=== PATIENT | male | born 1960 | race Caucasian/White ===

== ENCOUNTER 2025-05-24 19:30 | Inpatient (IN) ==
[2025-05-24 20:04] LABS: Hematocrit (blood only) 27.5 % (42.0-52.0); Hemoglobin 8.6 g/dL (14.0-18.0); Immature Granulocytes # (auto) 0.22 K/uL (0.01-0.20); Immature Granulocytes % (auto) 1.4 %; Mean Corpuscular Hemoglobin 26.3 pg (25.0-34.0); Mean Corpuscular Volume 84.1 fL (80.0-100.0); Platelet Count 476 K/uL (130-400); RDW Standard Deviation 50.8 fL (36.4-46.3); Red Blood Count 3.27 M/uL (4.70-6.10); White Blood Count 15.85 K/ul (4.8-10.8)
--- NOTE | 2025-05-24 20:04 | Emergency Department Note ---
Impression & Plan Post-operative infection, Intra-abdominal abscess ED Provider Note NAME: MT ORTIZ AGE: 64 SEX: M ARRIVES VIA: Ambulance INFORMANT: [Patient][, ] ED PROVIDER(S): Herb Spencer MD CHIEF COMPLAINT: Abnormal CT scan PLAN: Disposition: Hospitalize MEDICAL DECISION MAKING: Patient CT scan shows complications from his previous surgery, possible gas, concern primarily more for infection rather than acute bleeding. Will check septic workup, hemoglobin and reassess. May need transfer for tertiary care and continuity of care. Patient with relatively recently complex medical history with a perforated diverticulitis that had postoperative bleeding requiring coiling all done at [facility]. He had previously been at [facility] and then was [facility] at to [place]. Had a somewhat complicated postoperative course with bleeding. Over the last week he has had increased nausea and decreased appetite and some low-grade fevers. He was sent for CT scan today that showed a large hematoma, approximately 14 x 12 cm with some gas attenuation in and outside of it. No recent interventions. Concern for an infected hematoma, I discussed the case with Dr. Song, he recommends admission to the hospitalist service and likely IR consultation in the morning for possible drainage. IV Zosyn has been initiated. Patient hemodynamically stable. Is due for dialysis tomorrow. Family not interested in transfer to [place], they state if he does require tertiary care center or transfer [facility] will be their likely preferred destination. They live in the [place] area Patient does have some concern for sepsis but hemodynamics are okay and we will get a 30 cc/kg bolus will cause more harm than good based on his end-stage renal disease status and concern for possible fluid overload. He has been given a liter of fluid and his blood pressure is currently 120 or 67 and he appears well-perfused with good capillary refill and normal mental status. Triage Nursing notes reviewed and agree them. [Additional history obtained from] [] [Prior medical records reviewed] [] Vital Signs: reviewed and remarkable for [no significant abnormalities] Differential diagnosis: Intra-abdominal infection, bleeding, postoperative abscess, with complications ER treatment provided: IV fluids, IV antibiotics Diagnostics interpreted by me: ECG: Sinus rhythm with a rate of 109, no acute ST segment changes or abnormalities Cardiac Monitoring: Initially sinus tachycardia, transition into normal sinus rhythm with IV fluids and antibiotics. Laboratory studies: [See below] [] Imaging studies: [See below] [] Consultation(s): [none] HPI: 64/M arrives for evaluation ofAbnormal CAT scan. Patient states he recently had perforated diverticulitis and had surgery at [facility] in [place]. He had a colostomy placed and an ex lap. He states that over the last few days he has not had much appetite and not been eating. He has not had any vomiting but feels nauseous. He has had output from his ostomy. He went for a CAT scan today and was shown to have a retroperitoneal hematoma near the surgical site with gas and an outside the hematoma. Concerning for infection versus recent instrumentation. His surgery was the beginning of April and he has not had any recent instrumentation. Reportedly did have a low-grade temperature prehospital. Patient without significant abdominal pain. ROS: See above HPI for pertinent positives & negatives. A total of [10] systems reviewed and were otherwise negative. PAST MEDICAL HISTORY:[See Below] PAST SURGICAL HISTORY:[See Below] FAMILY HISTORY:[See Below] SOCIAL HISTORY:[See Below] HOME MEDICATIONS:[See Below] ALLERGIES:[See Below] VITALS:[See Below] PHYSICAL EXAMINATION: Gen: No acute distress, Chronically ill. But not toxic Eyes: PERRL, no redness or injection, EOMI Neck: Supple, normal ROM CV: S1, S2, No murmurs, no lower extremity edema Pulm: CTA bilaterally, no increased work of breathing, no wheezing GI: Abd soft, nontender, normal bowel sounds, no distension. Ex lap scar in place, nontender, well-healing, colostomy in place with output, no obvious gross infection on the skin. Nontender abdomen. : No CVA tenderness, no suprapubic abdominal tenderness or distension Neuro: No acute focal neuro deficits, normal strength and sensation Skin: No rashes, wounds, or erythema. ED COURSE: Times/Reassessments:Patient met on arrival, some borderline blood pressure and mild tachycardia prehospital but improved without significant intervention. Patient does not appear particularly anemic to suggest an active bleed. He is a dialysis patient. 9:08 PM: Patient's CAT scan concerning for possible postoperative infection, unclear if this is acute or chronic in nature. Does have a white blood cell count and had borderline temperature. 9:50 PM: Discussed the case with general surgery, recommends admission to the hospital service, likely IR consultation tomorrow. Does not feel the patient will require transfer to tertiary care center at this time. Does not feel it would require acute surgical interventions. Herb Spencer MD Past Med/Surg History Problem List (Updated 05/24/25 @ 22:12 by Herb Spencer MD) Intra-abdominal abscess (Acute) Post-operative infection (Acute) Social History Smoking Status: Former smoker Feels Safe at Home: Yes Allergies Allergies Allergy/AdvReac Type Severity Reaction Status Date / Time No Known Allergies Allergy Verified 05/24/25 20:55 Home Meds Home Medications Medication Instructions Recorded Confirmed acetaminophen 500 mg tablet 500 mg PO Q4H PRN PAIN/TEMP=>100F 05/24/25 05/24/25 (Tylenol Extra Strength) apixaban 5 mg tablet (Eliquis) 5 mg PO BID 05/24/25 05/24/25 aspirin 81 mg tablet,delayed 81 mg PO HS 05/24/25 05/24/25 release atorvastatin 40 mg tablet 80 mg PO HS 05/24/25 05/24/25 bisacodyl 10 mg rectal suppository 10 mg MD DAILY PRN Constipation 05/24/25 05/24/25 bumetanide 2 mg tablet 2 mg PO 4XWK 05/24/25 05/24/25 calcium 333 mg (as 3 tab PO BID 05/24/25 05/24/25 carbonate)-magnesium 167 mg (as oxide) tablet darbepoetin jessi in polysorbat 100 200 mcg subcut WK 05/24/25 05/24/25 mcg/0.5 mL in polysorbate injection syringe docusate sodium 100 mg capsule 100 mg PO BID PRN Constipation 05/24/25 05/24/25 febuxostat 40 mg tablet 80 mg PO DAILY 05/24/25 05/24/25 melatonin 3 mg tablet 6 mg PO HS PRN Insomnia 05/24/25 05/24/25 methocarbamol 500 mg tablet 1,000 mg PO Q8H PRN MUSCLE SPASMS 05/24/25 05/24/25 metolazone 2.5 mg tablet 5 mg PO 4XWK 05/24/25 05/24/25 midodrine 5 mg tablet 5 mg PO 3XWK PRN PRIOR TO DIALYSIS 05/24/25 05/24/25 midodrine 5 mg tablet 10 mg PO TIDM 05/24/25 05/24/25 mycophenolate sodium 180 mg 180 mg PO Q12H 05/24/25 05/24/25 tablet,delayed release ondansetron 4 mg disintegrating 4 mg PO Q6H PRN NAUSEA/VOMITING 05/24/25 05/24/25 tablet pantoprazole 40 mg tablet,delayed 40 mg PO DAILYBB 05/24/25 05/24/25 release polyethylene glycol 3350 17 17 g PO BID 05/24/25 05/24/25 gram/dose oral powder (Miralax) polyethylene glycol 3350 17 17 g PO QDL PRN Constipation 05/24/25 05/24/25 gram/dose oral powder (Miralax) prednisone 5 mg tablet 5 mg PO DAILY 05/24/25 05/24/25 sennosides 8.6 mg-docusate sodium 1 tab-cap PO QDL PRN Constipation 05/24/25 05/24/25 50 mg tablet (Senokot-S) sodium chloride 0.9 % 1,000 ml IV DIRECTED PRN 05/24/25 05/24/25 DIALYSIS NEEDED sodium phosphates 19 gram-7 118 ml MD DAILY PRN Constipation 05/24/25 05/24/25 gram/118 mL enema (Fleet Enema) sulfamethoxazole 800 0.5 tab PO 3XWK 05/24/25 05/24/25 mg-trimethoprim 160 mg tablet (Bactrim DS) tacrolimus 0.5 mg capsule, 0.5 mg PO HS 05/24/25 05/24/25 immediate-release tacrolimus 1 mg capsule, 1 mg PO QAM 05/24/25 05/24/25 immediate-release Results & Data (ED) Vital Signs Vital Signs - 24 hr 05/24/25 19:36 05/24/25 19:38 05/24/25 19:58 Temperature 36.6 C Temperature Source Oral Pulse Rate 112 H 108 H Pulse Rate [Apical] 105 H Respiratory Rate 19 28 H Respiratory Effort / Characteristics Non-Labored Spontaneous Non-Labored Spontaneous Respiratory Depth Normal Normal Respiratory Pattern Regular Regular Blood Pressure 116/77 Blood Pressure [Right Arm] 119/69 Blood Pressure Mean 90 Blood Pressure Mean [Right Arm] 85 Blood Pressure Position [Right Arm] Pulse Oximetry 95 98 Oxygen Delivery Method Room Air Room Air Sepsis Recent Fever Within 48 Hours No Sepsis New/Unexplained Change in Mental Status No Sepsis Action Taken by Nursing No Action Required 05/24/25 20:00 05/24/25 20:28 05/24/25 21:15 Temperature Temperature Source Pulse Rate 106 H Pulse Rate [Apical] 98 H 97 H Respiratory Rate 28 H 24 20 Respiratory Effort / Characteristics Non-Labored Spontaneous Respiratory Depth Normal Respiratory Pattern Regular Blood Pressure Blood Pressure [Right Arm] 125/76 120/67 Blood Pressure Mean Blood Pressure Mean [Right Arm] 92 84 Blood Pressure Position [Right Arm] Lying Pulse Oximetry 98 97 99 Oxygen Delivery Method Room Air Room Air Room Air Sepsis Recent Fever Within 48 Hours Sepsis New/Unexplained Change in Mental Status Sepsis Action Taken by Nursing Laboratory Data 05/24/25 19:45 05/24/25 19:45 Lab Results 05/24/25 05/24/25 Range/Units 19:45 21:38 WBC 15.85 H (4.8-10.8) K/ul RBC 3.27 L (4.70-6.10) M/uL Hgb 8.6 L (14.0-18.0) g/dL Hct 27.5 L (42.0-52.0) % MCV 84.1 (80.0-100.0) fL MCH 26.3 (25.0-34.0) pg MCHC 31.3 L (32.0-36.0) g/dL RDW Std Deviation 50.8 H (36.4-46.3) fL RDW Coeff of Gokul 16.6 H (11.5-14.5) % Plt Count 476 H (130-400) K/uL MPV 9.1 L (9.4-12.4) fL Immature Gran % (Auto) 1.4 % Neut % (Auto) 74.2 % Lymph % (Auto) 13.9 % [place] % (Auto) 10.0 % Eos % (Auto) 0.1 % Baso % (Auto) 0.4 % Neut # (Auto) 11.78 H (1.40-6.50) K/uL Lymph # (Auto) 2.20 (1.20-3.40) K/uL [place] # (Auto) 1.58 H (0.11-0.59) K/uL Eos # (Auto) 0.01 (0.00-0.50) K/uL Baso # (Auto) 0.06 (0.00-0.20) K/uL Immature Gran # (Auto) 0.22 H (0.01-0.20) K/uL PT 13.1 H (9.0-12.0) Seconds INR 1.3 H (0.9-1.1) APTT 31 (21-31) Seconds PTT Ratio 1.1 Sodium 130 L (136-145) mmol/L Potassium 4.3 (3.5-5.1) mmol/L Chloride 95 L (98-107) mmol/L Carbon Dioxide 23 (21-32) mmol/L Anion Gap 12 H (3-11) BUN 51 H (6-23) mg/dl Creatinine 5.15 H* (0.6-1.4) mg/dl Est Cr Clr Drug Dosing Not Reportable eGFR 11.91 BUN/Creatinine Ratio 9.9 L (10-20) Glucose 164 H (70-99(Fasting)) mg/dl Lactate 2.7 H* 2.0 (0.4-2.0) mmol/L Calcium 9.9 (8.6-10.3) mg/dl Magnesium 1.5 L (1.7-2.4) mg/dl Total Bilirubin 1.0 (0.2-1.0) mg/dl Direct Bilirubin 0.3 H (0-0.2) mg/dl AST 60 H (13-39) U/L ALT 59 H (7-52) U/L Alkaline Phosphatase 133 H (34-104) U/L Troponin I High Sens 13.7 (0-20) pg/ml Total Protein 7.4 (6.0-8.3) gm/dl Albumin 3.0 L (3.4-5.0) gm/dl Procalcitonin 1.23 H (0-0.5) ng/ml Blood Type O Positive Antibody Screen NEGATIVE Administered Medications Discontinued Medications Sodium Chloride (Nss) 1,000 mls @ 999 mls/hr IV .Q1H1M ONE Stop: 05/24/25 21:44 Last Admin: 05/24/25 21:52 Dose: Not Given Documented By: QGV Piperacillin Sod/Tazobactam Sod (Zosyn) 4.5 gm in 100 mls @ 200 mls/hr IV NOW ONE; Protocol Stop: 05/24/25 21:37 Last Infusion: 05/24/25 22:10 Dose: Infused Documented By: Admin: 05/24/25 21:38 Dose: 200 mls/hr Documented By: ReubenGV Discharge Plan Visit Data Chief Complaint: Abnormal Labs/Diagnostic Testing Stated Complaint: "INTERNAL BLEED", HAS COLOSTOMY, ABNORMAL CT ED Provider: Herb Spencer Discharge Problem: Post-operative infection, Intra-abdominal abscess Condition: Fair Forms Stand Alone Forms: [facility] Prescriptions Prescriptions: No Action metolazone 2.5 mg Tablet 5 mg PO 4XWK Rx Instructions: SUN, MARCELLA, THANGEL & SAT. atorvastatin 40 mg Tablet 80 mg PO HS methocarbamol 500 mg Tablet 1,000 mg PO Q8H PRN (Reason: MUSCLE SPASMS) bumetanide 2 mg Tablet 2 mg PO 4XWK Rx Instructions: MAYRA, MARCELLA, THURS, & SAT. sennosides-docusate sodium [Senokot-S] 8.6-50 mg Tablet 1 tab-cap PO QDL PRN (Reason: Constipation) prednisone 5 mg Tablet 5 mg PO DAILY midodrine 5 mg tablet 10 mg PO TIDM midodrine 5 mg Tablet 5 mg PO 3XWK PRN (Reason: PRIOR TO DIALYSIS ) Rx Instructions: MON, WED, & FRI melatonin 3 mg Tablet 6 mg PO HS PRN (Reason: Insomnia) sulfamethoxazole-trimethoprim [Bactrim DS] 800-160 mg Tablet 0.5 tab PO 3XWK Rx Instructions: MON, WED & FRI aspirin 81 mg Tablet,Delayed Release (Dr/Ec) 81 mg PO HS acetaminophen [Tylenol Extra Strength] 500 mg Tablet 500 mg PO Q4H PRN (Reason: PAIN/TEMP=>100F) sodium chloride 0.9 % [Normal Saline] Solution 1,000 ml IV DIRECTED PRN (Reason: DIALYSIS NEEDED) bisacodyl 10 mg Suppository 10 mg MD DAILY PRN (Reason: Constipation) pantoprazole 40 mg Tablet,Delayed Release (Dr/Ec) 40 mg PO DAILYBB Fleet Enema 19-7 gram/118 mL Enema 118 ml MD DAILY PRN (Reason: Constipation) docusate sodium 100 mg Capsule 100 mg PO BID PRN (Reason: Constipation) polyethylene glycol 3350 [Miralax] 17 gram/dose Powder 17 g PO BID polyethylene glycol 3350 [Miralax] 17 gram/dose Powder 17 g PO QDL PRN (Reason: Constipation) ondansetron [Zofran ODT] 4 mg Tablet,Disintegrating 4 mg PO Q6H PRN (Reason: NAUSEA/VOMITING) tacrolimus 1 mg Capsule 1 mg PO QAM tacrolimus 0.5 mg Capsule 0.5 mg PO HS mycophenolate sodium 180 mg tablet,delayed release (DR/EC) 180 mg PO Q12H darbepoetin jessi in polysorbat 100 mcg/0.5 mL Syringe 200 mcg subcut WK febuxostat 40 mg Tablet 80 mg PO DAILY calcium carbonate-mag oxide 333-167 mg Tablet 3 tab PO BID Eliquis 5 mg tablet 5 mg PO BID Referrals Referrals: PCP,NO [Physician] -
[2025-05-24 20:32] LABS: Alanine Aminotransferase 59 U/L (7-52); Albumin Level 3.0 gm/dl (3.4-5.0); Alkaline Phosphatase 133 U/L (34-104); Anion Gap 12 (3-11); Bilirubin,Total 1.0 mg/dl (0.2-1.0); Blood Urea Nitrogen 51 mg/dl (6-23); Calcium 9.9 mg/dl (8.6-10.3); Carbon Dioxide 23 mmol/L (21-32); Chloride 95 mmol/L (98-107); Glucose 164 mg/dl (70-99(Fasting)); Magnesium 1.5 mg/dl (1.7-2.4); Potassium 4.3 mmol/L (3.5-5.1); Sodium 130 mmol/L (136-145); Total Protein 7.4 gm/dl (6.0-8.3)
[2025-05-24 20:49] LABS: INR 1.3 (0.9-1.1); Partial Thromboplastin Time 31 Seconds (21-31); Prothrombin Time 13.1 Seconds (9.0-12.0)
[2025-05-24] MEDS: PIPERACILLIN/TAZOBACTAM 4.5 GM/100 ML BAG IV ONE (21:38)
[2025-05-24] MEDS: SODIUM CHLORIDE 0.9% 1,000 ML IV ONE (21:52)
--- NOTE | 2025-05-24 22:25 | History & Physical Report ---
Date of Service May 24, 2025 Assessment & Plan (1) Severe sepsis: Plan: Assessment and plan below following discussion of case with ED provider and reviewing patient history/pertinent normal/abnormal diagnostic test results. 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/kidney transplantation on immunosuppressive/anti-infective regimen (Bactrim for PJP prophylaxis) currently requiring HD) infected retroperitoneal fluid collection/hematoma, postop LLE DVT on Eliquis complicated diverticulitis status post recent surgery status post IR drainage 7 (04/2025, [facility]) Lori growth on CS as per patient account Pericardial effusion on CT imaging Transaminitis, in the setting of hepatic cysts, history of polycystic kidney disease Chronic hyponatremia Chronic anemia, hemoglobin at baseline hypertension, BP on the lower side, patient on midodrine Rx hyperlipidemia on statin Rx JUAN on CPAP Steroid induced hyperglycemia rule out DM past tobacco abuse Admit to med/tele CS, daptomycin, Zosyn, caspofungin General Surgery consult re: postop retroperitoneal fluid collection (ED provider already in touch with Dr. Song who recommends IR consult in a.m.) Hold Eliquis for now Follow H&H, transfuse PRBC to maintain hemoglobin of at least 7 TTE re: pericardial effusion Follow LFTs, hold statin for now Nephrology consult re: dialysis management Check hemoglobin A1c DVT prophylaxis. SCDs Re: Retroperitoneal bleed Full code Patient requesting updates providers. Mr. Maria A Osborn, contact #[phone]. Text document was generated using [employer] voice recognition software. It may contain grammatical or spelling errors. Kindly contact undersigned for clarification of any documentation item in question. History of Present Illness Chief Complaint: Abnormal CAT scans Primary Care Provider: Joshua Medina MD History obtained from patient, family, and records. 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 difficile as per records, chronic hyponatremia, chronic anemia (baseline hemoglobin 7-8), gout, past tobacco abuse. Patient admitted at [facility] from April 13 to 2024 following transfer from [facility] ER for perforated sigmoid diverticulitis/proximal small bowel obstruction. Pneumoperitoneum and small fluid collection left paracolic gutter on initial imaging. Patient underwent left hemicolectomy with transverse and colostomy by Dr. Timmons. Patient noted to have left lower extremity DVT (first clot for patient) following surgery. IV heparin initiated. Significant hemoglobin drop noted after IV heparin initiation with note of superficial postop bleed. Patient had to be transferred to ICU due to hypotension. IR drainage during confinement. Cultures grew Lori as per patient . Patient received micafungin during confinements. Hemodialysis initiated during confinement due to worsening kidney dysfunction. Patient subsequently discharged to [facility] 3 weeks ago. Worsening generalized weakness with poor appetite following confinement as per . Patient noted achy lower abdominal pain today. Patient denies headache, chest pain, SOB, cough symptoms. Patient sent for outpatient CTs at [facility]. CT chest: 1. Changes within the bilateral upper lobes and right middle lobe favor alveolitis and focal bronchitis in the right middle lobe. No lobar pneumonia or adenopathy. 2. Small left pleural effusion. 3. Small pericardial effusion with mild cardiomegaly. CT abdomen pelvis: 1. Large left retroperitoneal hemorrhage with gas within and outside of the hematoma, please correlate with attempted instrumentation or the possibility of superimposed infection. Based on the CT appearance, the hematoma appears subacute with only small amount of higher attenuating material/blood in the center. 2. Healing ventral midline surgical wound with mild regional inflammatory change and subcutaneous gas. Mild to moderate inflammation in the mesentery deep to the surgical wound and within the left upper quadrant. A loop of bowel is present either immediately abutting or within the wound at the level of the umbilicus without dilated loops of bowel. 3. Absent [place] kidneys with left pelvic kidney identified with no hydronephrosis, correlate with clinical history. 4. Innumerable low-attenuation hepatic lesions, possibly cysts may be related to polycystic kidney syndrome which may be why the kidneys are absent. Patient sent to ER by rehab provider. Initial SBP at rehab facility 90s as per EMS. IV Zosyn administered at the ER. Medical History as above Surgical History : Bowel surgery, foot surgery, vascular procedures, nephrectomy, kidney transplant Family History : Autoimmune disease, kidney disease Personal/Social history : Past tobacco abuse, occasional EtOH intake, disabled Allergies Allergy/AdvReac Type Severity Reaction Status Date / Time No Known Allergies Allergy Verified 05/24/25 20:55 Home Medications Medication Instructions Recorded Confirmed Type acetaminophen 500 mg tablet 500 mg PO Q4H PRN PAIN/TEMP=>100F 05/24/25 05/24/25 History (Tylenol Extra Strength) apixaban 5 mg tablet (Eliquis) 5 mg PO BID 05/24/25 05/24/25 History aspirin 81 mg tablet,delayed 81 mg PO HS 05/24/25 05/24/25 History release atorvastatin 40 mg tablet 80 mg PO HS 05/24/25 05/24/25 History bisacodyl 10 mg rectal suppository 10 mg ME DAILY PRN Constipation 05/24/25 05/24/25 History bumetanide 2 mg tablet 2 mg PO 4XWK 05/24/25 05/24/25 History calcium 333 mg (as 3 tab PO BID 05/24/25 05/24/25 History carbonate)-magnesium 167 mg (as oxide) tablet darbepoetin jessi in polysorbat 100 200 mcg subcut WK 05/24/25 05/24/25 History mcg/0.5 mL in polysorbate injection syringe docusate sodium 100 mg capsule 100 mg PO BID PRN Constipation 05/24/25 05/24/25 History febuxostat 40 mg tablet 80 mg PO DAILY 05/24/25 05/24/25 History melatonin 3 mg tablet 6 mg PO HS PRN Insomnia 05/24/25 05/24/25 History methocarbamol 500 mg tablet 1,000 mg PO Q8H PRN MUSCLE SPASMS 05/24/25 05/24/25 History metolazone 2.5 mg tablet 5 mg PO 4XWK 05/24/25 05/24/25 History midodrine 5 mg tablet 5 mg PO 3XWK PRN PRIOR TO DIALYSIS 05/24/25 05/24/25 History midodrine 5 mg tablet 10 mg PO TIDM 05/24/25 05/24/25 History mycophenolate sodium 180 mg 180 mg PO Q12H 05/24/25 05/24/25 History tablet,delayed release ondansetron 4 mg disintegrating 4 mg PO Q6H PRN NAUSEA/VOMITING 05/24/25 05/24/25 History tablet pantoprazole 40 mg tablet,delayed 40 mg PO DAILYBB 05/24/25 05/24/25 History release polyethylene glycol 3350 17 17 g PO BID 05/24/25 05/24/25 History gram/dose oral powder (Miralax) polyethylene glycol 3350 17 17 g PO QDL PRN Constipation 05/24/25 05/24/25 History gram/dose oral powder (Miralax) prednisone 5 mg tablet 5 mg PO DAILY 05/24/25 05/24/25 History sennosides 8.6 mg-docusate sodium 1 tab-cap PO QDL PRN Constipation 05/24/25 05/24/25 History 50 mg tablet (Senokot-S) sodium chloride 0.9 % 1,000 ml IV DIRECTED PRN 05/24/25 05/24/25 History DIALYSIS NEEDED sodium phosphates 19 gram-7 118 ml ME DAILY PRN Constipation 05/24/25 05/24/25 History gram/118 mL enema (Fleet Enema) sulfamethoxazole 800 0.5 tab PO 3XWK 05/24/25 05/24/25 History mg-trimethoprim 160 mg tablet (Bactrim DS) tacrolimus 0.5 mg capsule, 0.5 mg PO HS 05/24/25 05/24/25 History immediate-release tacrolimus 1 mg capsule, 1 mg PO QAM 05/24/25 05/24/25 History immediate-release Past Med/Surg History Problem List (Updated 05/25/25 @ 03:16 by Otis Ceron MD) Severe sepsis Intra-abdominal abscess (Acute) Post-operative infection (Acute) Social History Smoking Status: Former smoker Do You Dip or Chew Tobacco: No; Hx Alcohol Use: Yes Hx Substance Use: No Preferred Language: Georgian Communication Ability: Effective 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 Required: No Beliefs That Will Affect Care: Roman Catholic Roman Catholic Beliefs: Spiritism Current Living Situation: Spouse Feels Safe at Home: Yes Safety Concerns: Feels Safe At This Time Assistive Devices: CPAP and Hearing Aid - Bilateral Review of Systems Review of Systems: As per HPI, all other systems reviewed and negative Physical Exam Physical Exam: GENERAL: Comfortable, ill-appearing, obese, no respiratory distress SKIN: Pallor, warm HEENT: Pale palpebral conjunctivae, no ptosis, dry buccal mucosa NECK : Supple, no tenderness CHEST : Decreased breath sounds, no tenderness HEART : Tachycardic, systolic murmur ABDOMEN: Dressing over anterior abdomen, some distention, l minimal left-sided abdominal tenderness EXTREMITIES : No LE swelling/tenderness, palpable pulses, no other conspicuous deformities noted NEUROLOGIC : Coherent, no facial asymmetry, no other gross focality Results & Data Results & Data Vital Signs (Past 12 Hours) Vital Signs Temp Pulse Pulse Resp BP BP Pulse Ox 05/24/25 22:15 103 H 20 121/70 94 05/24/25 21:15 97 H 20 120/67 99 05/24/25 20:28 98 H 24 125/76 97 05/24/25 20:00 106 H 28 H 98 05/24/25 19:58 105 H 28 H 119/69 98 05/24/25 19:38 108 H 05/24/25 19:36 36.6 C 112 H 19 116/77 95 O2 Del Method 05/24/25 22:15 Room Air 05/24/25 21:15 Room Air 05/24/25 20:28 Room Air 05/24/25 20:00 Room Air 05/24/25 19:58 Room Air 05/24/25 19:38 05/24/25 19:36 Room Air Laboratory Results Laboratory Results WBC 15.85 K/ul (4.8-10.8) H 05/24/25 19:45 RBC 3.27 M/uL (4.70-6.10) L 05/24/25 19:45 Hgb 8.6 g/dL (14.0-18.0) L 05/24/25 19:45 Hct 27.5 % (42.0-52.0) L 05/24/25 19:45 MCV 84.1 fL (80.0-100.0) 05/24/25 19:45 MCH 26.3 pg (25.0-34.0) 05/24/25 19:45 MCHC 31.3 g/dL (32.0-36.0) L 05/24/25 19:45 RDW Std Deviation 50.8 fL (36.4-46.3) H 05/24/25 19:45 RDW Coeff of Gokul 16.6 % (11.5-14.5) H 05/24/25 19:45 Plt Count 476 K/uL (130-400) H 05/24/25 19:45 MPV 9.1 fL (9.4-12.4) L 05/24/25 19:45 Immature Gran % (Auto) 1.4 % 05/24/25 19:45 Neut % (Auto) 74.2 % 05/24/25 19:45 Lymph % (Auto) 13.9 % 05/24/25 19:45 [place] % (Auto) 10.0 % 05/24/25 19:45 Eos % (Auto) 0.1 % 05/24/25 19:45 Baso % (Auto) 0.4 % 05/24/25 19:45 Neut # (Auto) 11.78 K/uL (1.40-6.50) H 05/24/25 19:45 Lymph # (Auto) 2.20 K/uL (1.20-3.40) 05/24/25 19:45 [place] # (Auto) 1.58 K/uL (0.11-0.59) H 05/24/25 19:45 Eos # (Auto) 0.01 K/uL (0.00-0.50) 05/24/25 19:45 Baso # (Auto) 0.06 K/uL (0.00-0.20) 05/24/25 19:45 Immature Gran # (Auto) 0.22 K/uL (0.01-0.20) H 05/24/25 19:45 PT 13.1 Seconds (9.0-12.0) H 05/24/25 19:45 INR 1.3 (0.9-1.1) H 05/24/25 19:45 APTT 31 Seconds (21-31) 05/24/25 19:45 PTT Ratio 1.1 05/24/25 19:45 Sodium 130 mmol/L (136-145) L 05/24/25 19:45 Potassium 4.3 mmol/L (3.5-5.1) 05/24/25 19:45 Chloride 95 mmol/L (98-107) L 05/24/25 19:45 Carbon Dioxide 23 mmol/L (21-32) 05/24/25 19:45 Anion Gap 12 (3-11) H 05/24/25 19:45 BUN 51 mg/dl (6-23) H 05/24/25 19:45 Creatinine 5.15 mg/dl (0.6-1.4) H* 05/24/25 19:45 Est Cr Clr Drug Dosing Not Reportable 05/24/25 19:45 eGFR 11.91 05/24/25 19:45 BUN/Creatinine Ratio 9.9 (10-20) L 05/24/25 19:45 Glucose 164 mg/dl (70-99(Fasting)) H 05/24/25 19:45 Lactate 2.0 mmol/L (0.4-2.0) 05/24/25 21:38 Calcium 9.9 mg/dl (8.6-10.3) 05/24/25 19:45 Magnesium 1.5 mg/dl (1.7-2.4) L 05/24/25 19:45 Total Bilirubin 1.0 mg/dl (0.2-1.0) 05/24/25 19:45 Direct Bilirubin 0.3 mg/dl (0-0.2) H 05/24/25 19:45 AST 60 U/L (13-39) H 05/24/25 19:45 ALT 59 U/L (7-52) H 05/24/25 19:45 Alkaline Phosphatase 133 U/L (34-104) H 05/24/25 19:45 Troponin I High Sens 13.7 pg/ml (0-20) 05/24/25 19:45 Total Protein 7.4 gm/dl (6.0-8.3) 05/24/25 19:45 Albumin 3.0 gm/dl (3.4-5.0) L 05/24/25 19:45 Procalcitonin 1.23 ng/ml (0-0.5) H 05/24/25 19:45 Blood Type O Positive 05/24/25 19:45 Antibody Screen NEGATIVE 05/24/25 19:45 Diagnostic Findings EKG as per my interpretation :Rate 110, sinus tachycardia, LAD, LAFB, LVH, T wave abnormalities inferior leads
[2025-05-24] MEDS: MAGNESIUM SULFATE / D5W 1 GM/100 ML BAG IV SCH (22:27)
[2025-05-24] MEDS ORDERED: PROMETHAZINE 6.25 MG/50.25 ML BAG IV PRN (23:10)
[2025-05-24] MEDS ORDERED: ACETAMINOPHEN 500 MG TAB PO PRN (23:10)
[2025-05-24] MEDS ORDERED: POLYETHYLENE (MIRALAX) 17 GM PACK PO PRN (23:12)
[2025-05-24] MEDS ORDERED: DOCUSATE SODIUM 100 MG CAP PO PRN (23:12)
[2025-05-24] MEDS ORDERED: MELATONIN 3 MG TAB PO PRN (23:12)
[2025-05-25] MEDS: DAPTOmycin 600 MG in SYRINGE 0 ML IV STA (00:01)
[2025-05-25 00:19] LABS: Hematocrit (blood only) 24.9 % (42.0-52.0); Hemoglobin 7.7 g/dL (14.0-18.0)
[2025-05-25] MEDS: CASPOFUNGIN 70 MG in SODIUM CHLORIDE 0.9% 250 ML IV STA (01:02)
[2025-05-25] MEDS: LORATADINE 10 MG TAB PO ONE (01:33)
[2025-05-25 03:45] LABS: Appearance Urine Clear (Clear); Bacteria Urine Automated None Seen (None Seen); Epithelial Cell Urine Auto 0-2 /hpf (0-2); Glucose Urine UA Negative (Negative); WBC Urine Automated 0-5 /hpf (0-5)
[2025-05-25] MEDS: PIPERACILLIN/TAZOBACTAM 4.5 GM/100 ML BAG IV SCH (06:25)
[2025-05-25 06:57] LABS: Hematocrit (blood only) 25.0 % (42.0-52.0); Hemoglobin 8.0 g/dL (14.0-18.0); Immature Granulocytes # (auto) 0.15 K/uL (0.01-0.20); Immature Granulocytes % (auto) 1.3 %; Mean Corpuscular Hemoglobin 26.7 pg (25.0-34.0); Mean Corpuscular Volume 83.3 fL (80.0-100.0); Platelet Count 366 K/uL (130-400); RDW Standard Deviation 50.4 fL (36.4-46.3); Red Blood Count 3.00 M/uL (4.70-6.10); White Blood Count 11.35 K/ul (4.8-10.8)
[2025-05-25 07:16] LABS: Hemoglobin A1C 5.3 % (4.5-5.6)
[2025-05-25 07:25] LABS: Partial Thromboplastin Time 29 Seconds (21-31)
[2025-05-25 07:26] LABS: Alanine Aminotransferase 47.0 U/L (7-52); Albumin Globulin Ratio 0.8 (0.9-2); Albumin Level 3.0 gm/dl (3.4-5.0); Alkaline Phosphatase 114.0 U/L (34-104); Anion Gap 11.0 (3-11); Bilirubin,Total 0.9 mg/dl (0.2-1.0); Blood Urea Nitrogen 60.0 mg/dl (6-23); Calcium 9.8 mg/dl (8.6-10.3); Carbon Dioxide 22.0 mmol/L (21-32); Chloride 98.0 mmol/L (98-107); Creatinine Clr Calc Pharmacy 18.8 ml/min; Globulin 3.8 gm/dl (2.5-4.0); Glucose 107.0 mg/dl (70-99(Fasting)); Magnesium 1.9 mg/dl (1.7-2.4); Potassium 4.3 mmol/L (3.5-5.1); Sodium 131.0 mmol/L (136-145); Total Protein 6.8 gm/dl (6.0-8.3)
[2025-05-25 07:35] LABS: Thyroid Stimulating Hormone 0.759 uIu/ml (0.300-4.500)
--- NOTE | 2025-05-25 09:25 | Surgery Consultation ---
Date of Consultation May 25, 2025 Assessment & Plan (1) Retroperitoneal hemorrhage: (2) Intra-abdominal abscess: (3) Post-operative infection: Plan 64 year old immunocompromised patient with kidney transplant 5 years ago with recent ex lap, sigmoid resection and colostomy formation for perforated diverticulitis at [facility] in [place] (APRIL) with postoperative complications including DVT requiring anticoagulation, hypotension , and postop bleed requiring IR intervention/coiling presented to [place] with fatigue, nausea, chills, sweats, and decreased appetite. CT scan abdomen and pelvis worrisome for slow retroperitoneal bleed and possible infection. Hemodynamically stable. abdomen soft, nontender, no peritonitis. Ostomy is functioning but does have liquid dark brown/maroon output consistent with old blood. Given complex surgical history at [facility] and requiring IR coiling intervention for bleed and suspicion for continued slow bleed, highly recommend transfer to tertiary facility where there is advanced IR capabilities including IR embolization/coiling. Hold anti coagulation, monitor H&H q 6 hours, continue IV abx, and medical management Discussed with Hospitalist Dr. Rangel on recommendations Personally reviewed chart and imaging with DR. Albright attending surgeon who agrees with above. History of Present Illness Reason for Consultation: Retroperitoneal bleed, postop abscess Requesting Physician: Dr. 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 difficile as per records, chronic hyponatremia, chronic anemia (baseline hemoglobin 7-8), gout, past tobacco abuse who presented to [place] hospital due to decreased abdomen, nausea, and not feeling well. He was admitted at [facility] from April 13 to 2024 following transfer from [facility] ER for perforated sigmoid diverticulitis/proximal small bowel obstruction. Pneumoperitoneum and small fluid collection left paracolic gutter on initial imaging. Patient underwent left hemicolectomy with transverse and colostomy by Dr. Timmons. Patient noted to have left lower extremity DVT (first clot for patient) following surgery. IV heparin initiated. Significant hemoglobin drop noted after IV heparin initiation with note of superficial postop bleed. Patient had to be transferred to ICU due to hypotension. IR drainage during confinement at [facility] for postop bleeding with IR coiling. Hemodialysis initiated during confinement due to worsening kidney dysfunction. Patient subsequently discharged to [facility] rehab facility 2 weeks ago. present at bedside. He states he is not having abdominal pain but jsut overall not feeling well with chills and sweats and nausea and decreased appetite. No chest pain, shortness of breath, Dizziness, lightheadedness. states he had colonic stool retention and was on laxatives. Ostomy is working. gas and liquid stool for a while. state she believes stool has looked dark, maroon like. no bright red blood. Allergies Allergy/AdvReac Type Severity Reaction Status Date / Time No Known Allergies Allergy Verified 05/24/25 20:55 Home Medications Medication Instructions Recorded Confirmed Type acetaminophen 500 mg tablet 500 mg PO Q4H PRN PAIN/TEMP=>100F 05/24/25 05/24/25 History (Tylenol Extra Strength) apixaban 5 mg tablet (Eliquis) 5 mg PO BID 05/24/25 05/24/25 History aspirin 81 mg tablet,delayed 81 mg PO HS 05/24/25 05/24/25 History release atorvastatin 40 mg tablet 80 mg PO HS 05/24/25 05/24/25 History bisacodyl 10 mg rectal suppository 10 mg MS DAILY PRN Constipation 05/24/25 05/24/25 History bumetanide 2 mg tablet 2 mg PO 4XWK 05/24/25 05/24/25 History calcium 333 mg (as 3 tab PO BID 05/24/25 05/24/25 History carbonate)-magnesium 167 mg (as oxide) tablet darbepoetin jessi in polysorbat 100 200 mcg subcut WK 05/24/25 05/24/25 History mcg/0.5 mL in polysorbate injection syringe docusate sodium 100 mg capsule 100 mg PO BID PRN Constipation 05/24/25 05/24/25 History febuxostat 40 mg tablet 80 mg PO DAILY 05/24/25 05/24/25 History melatonin 3 mg tablet 6 mg PO HS PRN Insomnia 05/24/25 05/24/25 History methocarbamol 500 mg tablet 1,000 mg PO Q8H PRN MUSCLE SPASMS 05/24/25 05/24/25 History metolazone 2.5 mg tablet 5 mg PO 4XWK 05/24/25 05/24/25 History midodrine 5 mg tablet 5 mg PO 3XWK PRN PRIOR TO DIALYSIS 05/24/25 05/24/25 History midodrine 5 mg tablet 10 mg PO TIDM 05/24/25 05/24/25 History mycophenolate sodium 180 mg 180 mg PO Q12H 05/24/25 05/24/25 History tablet,delayed release ondansetron 4 mg disintegrating 4 mg PO Q6H PRN NAUSEA/VOMITING 05/24/25 05/24/25 History tablet pantoprazole 40 mg tablet,delayed 40 mg PO DAILYBB 05/24/25 05/24/25 History release polyethylene glycol 3350 17 17 g PO BID 05/24/25 05/24/25 History gram/dose oral powder (Miralax) polyethylene glycol 3350 17 17 g PO QDL PRN Constipation 05/24/25 05/24/25 History gram/dose oral powder (Miralax) prednisone 5 mg tablet 5 mg PO DAILY 05/24/25 05/24/25 History sennosides 8.6 mg-docusate sodium 1 tab-cap PO QDL PRN Constipation 05/24/25 05/24/25 History 50 mg tablet (Senokot-S) sodium chloride 0.9 % 1,000 ml IV DIRECTED PRN 05/24/25 05/24/25 History DIALYSIS NEEDED sodium phosphates 19 gram-7 118 ml MS DAILY PRN Constipation 05/24/25 05/24/25 History gram/118 mL enema (Fleet Enema) sulfamethoxazole 800 0.5 tab PO 3XWK 05/24/25 05/24/25 History mg-trimethoprim 160 mg tablet (Bactrim DS) tacrolimus 0.5 mg capsule, 0.5 mg PO HS 05/24/25 05/24/25 History immediate-release tacrolimus 1 mg capsule, 1 mg PO QAM 05/24/25 05/24/25 History immediate-release Patient History Social History Smoking Status: Former smoker Do You Dip or Chew Tobacco: No; Hx Alcohol Use: Yes Hx Substance Use: No Preferred Language: Kinyarwanda Communication Ability: Effective Baton Teacher Required: No Beliefs That Will Affect Care: Tenriism Tenriism Beliefs: Catholic Current Living Situation: Spouse Feels Safe at Home: Yes Safety Concerns: Feels Safe At This Time Assistive Devices: CPAP and Hearing Aid - Bilateral Review of Systems Review of Systems: All systems reviewed & are unremarkable except as noted in HPI & below Physical Exam Constitutional: WD/WN, vitals as above cooperative and comfortable; no acute distress, not ill appearing, not in distress and not diaphoretic Respiratory: normal respiratory effort; no respiratory distress, no labored breathing and no retractions Gastrointestinal (Abdomen): Inspection/Auscultation: abdomen normal to inspection, + abdominal surgical incision (midline laparotomy incision with fibrinous exudate present, fascia intact. ) and + hypoactive bowel sounds; abdomen not distended and + abnormal bowel sounds Percussion/Palpation: abdomen soft; abdomen nontender, no guarding and abdomen not rigid left lower quadrant ostomy with liquid dark/maroon stool and gas no bright red blood midline wound with reactive erythema. Skin: no rashes, warm and dry Psychiatric: Orientation: alert and oriented x 3 Results & Data Vital Signs (Past 12 Hours) Vital Signs Temp Pulse Pulse Resp BP Pulse Ox O2 Del Method 05/25/25 07:58 87 05/25/25 07:58 36.9 C 90 18 130/73 97 Room Air 05/25/25 03:20 36.8 C 86 16 115/73 95 Room Air 05/25/25 00:25 37 C 93 H 16 124/85 97 Room Air 05/24/25 23:32 94 H 05/24/25 22:15 103 H 20 121/70 94 Room Air Laboratory Results 05/25/25 05/25/25 05/24/25 Range/Units 06:06 03:15 23:56 WBC 11.35 H (4.8-10.8) K/ul RBC 3.00 L (4.70-6.10) M/uL Hgb 8.0 L 7.7 L (14.0-18.0) g/dL Hct 25.0 L 24.9 L (42.0-52.0) % MCV 83.3 (80.0-100.0) fL MCH 26.7 (25.0-34.0) pg MCHC 32.0 (32.0-36.0) g/dL RDW Std Deviation 50.4 H (36.4-46.3) fL RDW Coeff of Gokul 16.6 H (11.5-14.5) % Plt Count 366 (130-400) K/uL MPV 9.1 L (9.4-12.4) fL Immature Gran % (Auto) 1.3 % Neut % (Auto) 69.1 % Lymph % (Auto) 14.9 % Swain % (Auto) 13.9 % Eos % (Auto) 0.3 % Baso % (Auto) 0.5 % Neut # (Auto) 7.84 H (1.40-6.50) K/uL Lymph # (Auto) 1.69 (1.20-3.40) K/uL Swain # (Auto) 1.58 H (0.11-0.59) K/uL Eos # (Auto) 0.03 (0.00-0.50) K/uL Baso # (Auto) 0.06 (0.00-0.20) K/uL Immature Gran # (Auto) 0.15 (0.01-0.20) K/uL PT (9.0-12.0) Seconds INR (0.9-1.1) APTT 29 (21-31) Seconds PTT Ratio 1.1 Sodium 131 L 130 L (136-145) mmol/L Potassium 4.3 (3.5-5.1) mmol/L Chloride 98 (98-107) mmol/L Carbon Dioxide 22 (21-32) mmol/L Anion Gap 11 (3-11) BUN 60 H (6-23) mg/dl Creatinine 5.40 H* (0.6-1.4) mg/dl Est Cr Clr Drug Dosing 18.8 eGFR 11.25 BUN/Creatinine Ratio 11.1 (10-20) Glucose 107 H (70-99(Fasting)) mg/dl Estimat Average Glucose 105 mg/dl Hemoglobin A1c 5.3 (4.5-5.6) % Osmolality 294 (280-300) mOsm/kg Lactate (0.4-2.0) mmol/L Calcium 9.8 (8.6-10.3) mg/dl Magnesium 1.9 (1.7-2.4) mg/dl Total Bilirubin 0.9 (0.2-1.0) mg/dl Direct Bilirubin (0-0.2) mg/dl AST 45 H (13-39) U/L ALT 47 (7-52) U/L Alkaline Phosphatase 114 H (34-104) U/L Troponin I High Sens (0-20) pg/ml Total Protein 6.8 (6.0-8.3) gm/dl Albumin 3.0 L (3.4-5.0) gm/dl Globulin 3.8 (2.5-4.0) gm/dl Albumin/Globulin Ratio 0.8 L (0.9-2) Procalcitonin (0-0.5) ng/ml TSH 0.759 (0.300-4.500) uIu/ml Urine Color Dark Yellow Urine Appearance Clear (Clear) Urine pH 5.0 (4.5-7.5) Ur Specific [place] 1.017 (1.000-1.030) Urine Protein 1+ H (Negative) Urine Glucose (UA) Negative (Negative) Urine Ketones Trace H (Negative) Urine Blood Negative (Negative) Urine Nitrite Negative (Negative) Urine Bilirubin Negative (Negative) Urine Urobilinogen Negative (Negative) Ur Leukocyte Esterase Trace H (Negative) Urine WBC (Auto) 0-5 (0-5) /hpf Urine RBC (Auto) 6-10 H (0-2) /hpf U Hyaline Cast (Auto) 11-20 H (0-2) /lpf U Epithel Cells (Auto) 0-2 (0-2) /hpf Urine Bacteria (Auto) None Seen (None Seen) Urine Mucus Present A (None Prsent) Urine Comment Nasal Screen MRSA (PCR) (Negative) Blood Type Antibody Screen 05/24/25 05/24/25 05/24/25 Range/Units 22:42 21:38 19:45 WBC 15.85 H (4.8-10.8) K/ul RBC 3.27 L (4.70-6.10) M/uL Hgb 8.6 L (14.0-18.0) g/dL Hct 27.5 L (42.0-52.0) % MCV 84.1 (80.0-100.0) fL MCH 26.3 (25.0-34.0) pg MCHC 31.3 L (32.0-36.0) g/dL RDW Std Deviation 50.8 H (36.4-46.3) fL RDW Coeff of Gokul 16.6 H (11.5-14.5) % Plt Count 476 H (130-400) K/uL MPV 9.1 L (9.4-12.4) fL Immature Gran % (Auto) 1.4 % Neut % (Auto) 74.2 % Lymph % (Auto) 13.9 % Swain % (Auto) 10.0 % Eos % (Auto) 0.1 % Baso % (Auto) 0.4 % Neut # (Auto) 11.78 H (1.40-6.50) K/uL Lymph # (Auto) 2.20 (1.20-3.40) K/uL Swain # (Auto) 1.58 H (0.11-0.59) K/uL Eos # (Auto) 0.01 (0.00-0.50) K/uL Baso # (Auto) 0.06 (0.00-0.20) K/uL Immature Gran # (Auto) 0.22 H (0.01-0.20) K/uL PT 13.1 H (9.0-12.0) Seconds INR 1.3 H (0.9-1.1) APTT 31 (21-31) Seconds PTT Ratio 1.1 Sodium 130 L (136-145) mmol/L Potassium 4.3 (3.5-5.1) mmol/L Chloride 95 L (98-107) mmol/L Carbon Dioxide 23 (21-32) mmol/L Anion Gap 12 H (3-11) BUN 51 H (6-23) mg/dl Creatinine 5.15 H* (0.6-1.4) mg/dl Est Cr Clr Drug Dosing Not Reportable eGFR 11.91 BUN/Creatinine Ratio 9.9 L (10-20) Glucose 164 H (70-99(Fasting)) mg/dl Estimat Average Glucose mg/dl Hemoglobin A1c (4.5-5.6) % Osmolality (280-300) mOsm/kg Lactate 2.0 2.7 H* (0.4-2.0) mmol/L Calcium 9.9 (8.6-10.3) mg/dl Magnesium 1.5 L (1.7-2.4) mg/dl Total Bilirubin 1.0 (0.2-1.0) mg/dl Direct Bilirubin 0.3 H (0-0.2) mg/dl AST 60 H (13-39) U/L ALT 59 H (7-52) U/L Alkaline Phosphatase 133 H (34-104) U/L Troponin I High Sens 13.7 (0-20) pg/ml Total Protein 7.4 (6.0-8.3) gm/dl Albumin 3.0 L (3.4-5.0) gm/dl Globulin (2.5-4.0) gm/dl Albumin/Globulin Ratio (0.9-2) Procalcitonin 1.23 H (0-0.5) ng/ml TSH (0.300-4.500) uIu/ml Urine Color Urine Appearance (Clear) Urine pH (4.5-7.5) Ur Specific [place] (1.000-1.030) Urine Protein (Negative) Urine Glucose (UA) (Negative) Urine Ketones (Negative) Urine Blood (Negative) Urine Nitrite (Negative) Urine Bilirubin (Negative) Urine Urobilinogen (Negative) Ur Leukocyte Esterase (Negative) Urine WBC (Auto) (0-5) /hpf Urine RBC (Auto) (0-2) /hpf U Hyaline Cast (Auto) (0-2) /lpf U Epithel Cells (Auto) (0-2) /hpf Urine Bacteria (Auto) (None Seen) Urine Mucus (None Prsent) Urine Comment Nasal Screen MRSA (PCR) Negative (Negative) Blood Type O Positive Antibody Screen NEGATIVE Diagnostic Findings [place], [place] [phone] CT Scan Report Patient: RAKAN ORTIZ Admit Date: 05/24/25 MR#: [id number] Address1: [address] [place] [address] Acct ID:[id number] Address2: Date: 1960 [facility] Zip: [place] [address] Age: 64 Location: CT Sex: M Room/Bed: Att Phy: Dax Rangel MD Diagnosis: ABDOMINAL WOUND Corina Phy: PCP,NO Service Date: 05/24/25 Fam Phy: Interpreting Phy: Carina Sutton MDAdmit Phy: Ordering Phy: Dax Rangel MD cc: ~ ADDENDUM CRITICAL FIND: Leydi Lopez, 648 Call Center Staff, called the ordering physician to inform them of a critical finding in the report, Spoke to Damion at [facility] Switchboard who sent a message to Dr. Rangel but also transferred me over to Alan at 5:44PM. Spoke to Alan in Radiology she stated that she talked with Priscila the Nursing Popped Corn Oven Attendant because the doctor was not available, but the Nursing hydrochloric area supervisor is getting in touch with the doctor Alan faxed over the results and she is waiting to hear back. If the doctor needs to contact us, she will give them our number to call. The call was completed at 5:50PM 05/24/25 At 5:59PM Dr. Rangel called to speak with the reading radiologist for the critical call was completed at 6:02PM. I texted Dr. Sutton with Dr. Rangel's phone number [phone] at 6:03PM Findings were discussed to Dr. Rangel by Dr. Carina Sutton at 1823 EST on 05/24/2025. Pt is currently in a rehab facility and will be sent to the ER for further evaluation of the left retroperitoneal hemorrhage. Surgery was two weeks ago. The hemorrhage appears to have blood of varying ages, and is suspicious for a slowly bleeding hemorrhage. CTA may be useful as well as percutaneous drain if appropriate. Electronically signed by Carina Sutton 05-24-2025 6:26 PM ADDENDUM END EXAMINATION: Abdomen and pelvis CT without CLINICAL HISTORY: Abdominal wound PRIORS: None TECHNIQUE: Contiguous axial images were obtained through the abdomen and pelvis without the use of intravenous contrast. Sagittal and coronal reformations are supplied. FINDINGS: Chest CT dictated under separate heading. A large left retroperitoneal fluid collection is present, extending to the paracolic gutter and traveling along the lateral peritoneal cavity, extending to the level of the left anterior superior iliac spine. The fluid collection contains gas within it and at the periphery of the collection, image 138, series 2. Centrally, the material within the fluid collection measures 59 Hounsfield units, compatible with blood products. Allowing for its irregular size, the left retroperitoneal hematoma hemorrhage measures 12 cm in anteroposterior dimension by 14.4 cm in transverse dimension by at least 1.6 cm in craniocaudal dimension. A capsule appearing device noted at the edge of the collection, lateral peritoneal cavity, image 178, series 5 with a ovoid appearance, homogeneous high attenuation measuring 1.2 cm, uncertain whether this is an a loop of bowel or external. Moderate inflammatory change is present within the ventral abdominal wall subcutaneous tissue, with appears to be a surgical wound in the midline of the abdomen with vertical orientation. Moderate inflammatory change present deep within the wound with scattered foci of subcutaneous gas. A loop of small bowel is immediately abutting or adherent to the abdominal wound at the level of the umbilicus, image 57, series 6 with no bowel dilatation. Focal mesenteric inflammatory change present deep to the surgical wound, image 33, series 6 likely representing fat necrosis. Ostomy present with mild herniated fat and parastomal hernia, image 42, series 6. Innumerable low-attenuation hepatic lesions present, not further characterized. The pancreas is fatty infiltrated. Possible pancreatic head mass, not further characterized and identified on image 158, series 5. No peripancreatic inflammatory change. The spleen, under distended stomach, aorta and are morphologically unremarkable. Multiple surgical clips in the bilateral retroperitoneum. No right kidney identified. A left kidney is present in the left Tejinder pelvis with mild inflammatory change. Urinary bladder under distended. Atrophic appearing calcified structure in the right Tejinder pelvis. No ascites or adenopathy. No free fluid in the pelvis. Colon is underdistended with small amount of formed stool noted. IMPRESSION: 1. Large left retroperitoneal hemorrhage with gas within and outside of the hematoma, please correlate with attempted instrumentation or the possibility of superimposed infection. Based on the CT appearance, the hematoma appears subacute with only small amount of higher attenuating material/blood in the center. 2. Healing ventral midline surgical wound with mild regional inflammatory change and subcutaneous gas. Mild to moderate inflammation in the mesentery deep to the surgical wound and within the left upper quadrant. A loop of bowel is present either immediately abutting or within the wound at the level of the umbilicus without dilated loops of bowel. 3. Absent comanche kidneys with left pelvic kidney identified with no hydronephrosis, correlate with clinical history. 4. Innumerable low-attenuation hepatic lesions, possibly cysts may be related to polycystic kidney syndrome which may be why the kidneys are absent. The critical result protocol was activated at 5:05 PM on 05/24/2025. ACT 112: Positive. There are findings on this examination that require communication between the performing entity and the patient following Patient Test Result Information Act ([place] ACT 112) guidelines. Personally reviewed CT scan images and concur with above findings.
[2025-05-25] MEDS: MIDODRINE HCL 2.5 MG TAB PO PRN (09:39)
[2025-05-25] MEDS: MYCOPHENOLATE SODIUM 180 MG TAB PO SCH (09:39)
[2025-05-25] MEDS: TACROLIMUS 1 MG CAP PO SCH (09:39)
[2025-05-25] MEDS: MIDODRINE HCL 10 MG TAB PO SCH (09:40)
--- NOTE | 2025-05-25 11:45 | Nephrology Consultation ---
Date of Consultation May 25, 2025 Assessment & Plan (1) Dialysis patient: Patient has been accepted to [facility] but no timeframe for that transfer yet Dialysis today no UF to optimize clearance; use AVF >>he is NPO currently >> if/when taking po, dialysis diet and 1.5 L FR recommended >>AVOID nephrotoxins >>continue to monitor for renal recovery; baseline creatinine unknown; was 2.0 on original hospital presentation in [place] on 04/09 >continue strict I/O >> he is not officially dialysis dependent at this time >> we continue to monitor for renal recovery >continue midodrine >continue bumex, metolazone current doses (2) Renal transplant recipient: unknown what his baseline mycophenolate dose is; will hold mycophenolate given severe infection continue tacrolimus, prednisone current doses no indication to obtain tac levels given planned transfer (3) Intra-abdominal abscess: reported h/o fungal abscess last month; now with imaging and clinical picture concerning for recurrence on caspofungin, daptomycin, zosyn -for drainage/culture of abscess at [facility] (4) Retroperitoneal hemorrhage: no heparin in HD as per primary service >>need to clarify at [facility] whether indication for anticoagulation is postop a fib or lower extremity DVT >> some dissonance in records/reporting History of Present Illness Reason for Consultation: missed dialysis Requesting Physician: Dr Ceron Attending Physician: Misha Rangel MD History of Present Illness Medically complex 64-year-old male whom I am asked to evaluate for missed dialysis was admitted last evening with left retroperitoneal hemorrhage and concern for severe sepsis from postoperative retroperitoneal fluid collection. Past medical history includes ANA-D on CKD w/ h/o ESRD from polycystic kidney disease status post BL nephrectomies and 2019 kidney transplantation on immunosuppression currently dialysis dependent, complicated diverticulitis status post surgery at [facility] last month, HFrEF, ischemic [employer] and CAD, history of C. difficile, sleep apnea on CPAP, postop left lower extremity DVT on Eliquis, hypertension, chronic hyponatremia, past tobacco abuse, hyperlipidemia, gout, s/p R Charcot foot repair, AVF creation. He originally presented to [facility] with severe lower quadrant abdominal pain and nausea. Presenting creatinine was 2.0 on April 10. He was life flighted to [facility] in [place] April 13 for perforated sigmoid diverticulitis with proximal small bowel obstruction and remained inpatient there until May 09. He underwent left hemicolectomy with transverse end colostomy. Left lower extremity DVT noted postoperatively (per report here though by records at [facility] he had postoperative atrial fibrillation prompting anticoagulation and no mention of DVT) -- he was started on anticoagulation complicated by significant acute anemia and hypotension requiring ICU transfer. He did have a course of TPN (end 04/25) and micafungin (end 04/27) - I have seen no reports of IR drainage of abscess while at [facility], though sounds like what reports w/ cultures reportedly growing Lori. he had worsening renal function and had to resume dialysis during this critical illness > started on CRRT postoperatively but transitioned 04/13 to intermittent HD. He was admitted here last evening from [facility] where he had been since [facility] hospital discharge. He had been having significant generalized weakness hypotension and intermittent fevers/chills since at least 05/18 at rehab with negative blood cultures. he has had worsening leukocytosis since 05/17. Outpatient CT was obtained yesterday of chest abdomen pelvis, showing large left retroperitoneal hemorrhage with gas within and outside of the hematoma concerning for infection versus instrumentation. He continues to void multiple times daily but no I/O are available. He had HD on 05/23 and tolerated about 1 L UF but required nearly 400 mL NS to treat post treatment hypotension. he was significantly weak at that treatment and nearly slid to the floor that day transferring after tx. Creatinine had been running in 6s w/ hyperkalemia during the last week of April. For past 2 weeks it runs more in 4-5 range and potassium has improved. FK levels have been in the 4.3-7.6 range, last one 7.6 on 05/24. These are not true troughs however >> drawn consistently at [id number]. He has very poor appetite. no f/c/sweats currently. no sob, no chest pain, no palpitations, no edema. no abdominal pain. denies new or worrisome voiding concerns. Allergies Allergy/AdvReac Type Severity Reaction Status Date / Time No Known Allergies Allergy Verified 05/24/25 20:55 Home Medications Medication Instructions Recorded Confirmed Type acetaminophen 500 mg tablet 500 mg PO Q4H PRN PAIN/TEMP=>100F 05/24/25 05/24/25 History (Tylenol Extra Strength) apixaban 5 mg tablet (Eliquis) 5 mg PO BID 05/24/25 05/24/25 History aspirin 81 mg tablet,delayed 81 mg PO HS 05/24/25 05/24/25 History release atorvastatin 40 mg tablet 80 mg PO HS 05/24/25 05/24/25 History bisacodyl 10 mg rectal suppository 10 mg IA DAILY PRN Constipation 05/24/25 05/24/25 History bumetanide 2 mg tablet 2 mg PO 4XWK 05/24/25 05/24/25 History calcium 333 mg (as 3 tab PO BID 05/24/25 05/24/25 History carbonate)-magnesium 167 mg (as oxide) tablet darbepoetin jessi in polysorbat 100 200 mcg subcut WK 05/24/25 05/24/25 History mcg/0.5 mL in polysorbate injection syringe docusate sodium 100 mg capsule 100 mg PO BID PRN Constipation 05/24/25 05/24/25 History febuxostat 40 mg tablet 80 mg PO DAILY 05/24/25 05/24/25 History melatonin 3 mg tablet 6 mg PO HS PRN Insomnia 05/24/25 05/24/25 History methocarbamol 500 mg tablet 1,000 mg PO Q8H PRN MUSCLE SPASMS 05/24/25 05/24/25 History metolazone 2.5 mg tablet 5 mg PO 4XWK 05/24/25 05/24/25 History midodrine 5 mg tablet 5 mg PO 3XWK PRN PRIOR TO DIALYSIS 05/24/25 05/24/25 History midodrine 5 mg tablet 10 mg PO TIDM 05/24/25 05/24/25 History mycophenolate sodium 180 mg 180 mg PO Q12H 05/24/25 05/24/25 History tablet,delayed release ondansetron 4 mg disintegrating 4 mg PO Q6H PRN NAUSEA/VOMITING 05/24/25 05/24/25 History tablet pantoprazole 40 mg tablet,delayed 40 mg PO DAILYBB 05/24/25 05/24/25 History release polyethylene glycol 3350 17 17 g PO BID 05/24/25 05/24/25 History gram/dose oral powder (Miralax) polyethylene glycol 3350 17 17 g PO QDL PRN Constipation 05/24/25 05/24/25 History gram/dose oral powder (Miralax) prednisone 5 mg tablet 5 mg PO DAILY 05/24/25 05/24/25 History sennosides 8.6 mg-docusate sodium 1 tab-cap PO QDL PRN Constipation 05/24/25 05/24/25 History 50 mg tablet (Senokot-S) sodium chloride 0.9 % 1,000 ml IV DIRECTED PRN 05/24/25 05/24/25 History DIALYSIS NEEDED sodium phosphates 19 gram-7 118 ml IA DAILY PRN Constipation 05/24/25 05/24/25 History gram/118 mL enema (Fleet Enema) sulfamethoxazole 800 0.5 tab PO 3XWK 05/24/25 05/24/25 History mg-trimethoprim 160 mg tablet (Bactrim DS) tacrolimus 0.5 mg capsule, 0.5 mg PO HS 05/24/25 05/24/25 History immediate-release tacrolimus 1 mg capsule, 1 mg PO QAM 05/24/25 05/24/25 History immediate-release Patient History Social History Smoking Status: Former smoker Do You Dip or Chew Tobacco: No; Hx Alcohol Use: Yes Hx Substance Use: No Preferred Language: Georgian Communication Ability: Effective 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: No Beliefs That Will Affect Care: Baptism Baptism Beliefs: Shinto Current Living Situation: Spouse Feels Safe at Home: Yes Safety Concerns: Feels Safe At This Time Assistive Devices: CPAP and Hearing Aid - Bilateral Review of Systems 2 Review of Systems: All systems reviewed & are unremarkable except as noted in Subjective Physical Exam 2 Constitutional: well developed and well nourished Eyes: EOM intact bilaterally ENMT: Mouth: + dry oral mucous membranes Neck: no nuchal rigidity Respiratory: normal respiratory effort Auscultation: + diminished lung sounds Cardiovascular: Rate/Rhythm: regular rate and regular rhythm Extremities: + AV fistula; no edema Gastrointestinal (Abdomen): Inspection/Auscultation: abdomen normal to inspection (with midline large dressing and LLQ colostomy w/ watery dark output), + abdomen distended and normal bowel sounds Percussion/Palpation: a bdomen soft; abdomen nontender Musculoskeletal: Extremities: strength 5/5 throughout Skin: no rashes, warm and dry Neurologic: lugo, fluent speech, no tremor Results & Data Vital Signs (Past 12 Hours) Vital Signs Temp Pulse Pulse Resp BP Pulse Ox O2 Del Method 05/25/25 07:58 87 05/25/25 07:58 36.9 C 90 18 130/73 97 Room Air 05/25/25 03:20 36.8 C 86 16 115/73 95 Room Air 05/25/25 00:25 37 C 93 H 16 124/85 97 Room Air 05/24/25 23:32 94 H Laboratory Results 05/25/25 06:06 05/25/25 06:[address] chest 1. Changes within the bilateral upper lobes and right middle lobe favor alveolitis and focal bronchitis in the right middle lobe. No lobar pneumonia or adenopathy. 2. Small left pleural effusion. 3. Small pericardial effusion with mild cardiomegaly. CT abdomen pelvis: 1. Large left retroperitoneal hemorrhage with gas within and outside of the hematoma, please correlate with attempted instrumentation or the possibility of superimposed infection. Based on the CT appearance, the hematoma appears subacute with only small amount of higher attenuating material/blood in the center. 2. Healing ventral midline surgical wound with mild regional inflammatory change and subcutaneous gas. Mild to moderate inflammation in the mesentery deep to the surgical wound and within the left upper quadrant. A loop of bowel is present either immediately abutting or within the wound at the level of the umbilicus without dilated loops of bowel. 3. Absent [place] kidneys with left pelvic kidney identified with no hydronephrosis, correlate with clinical history. 4. Innumerable low-attenuation hepatic lesions, possibly cysts may be related to polycystic kidney syndrome which may be why the kidneys are absent.
[2025-05-25] MEDS ORDERED: SODIUM CHLORIDE 0.9% 1,000 ML IV PRN (12:02)
--- NOTE | 2025-05-25 12:30 | Hospitalist Progress Note ---
Date of Service May 25, 2025 Assessment & Plan (1) Severe sepsis: Plan: Severe sepsis Lactic acidosis Intra-abdominal abscess/postoperative infection Retroperitoneal hemorrhage Immunocompromised patient (ESRD secondary to PCKD status post nephrectomy/kidney transplantation on immunosuppressive/anti-infective regimen (Bactrim for PJP prophylaxis) currently requiring HD) --H/O recent exploratory laparotomy, sigmoid resection and colostomy formation for perforated diverticulitis at [facility]. Patient required IR intervention/coiling for postoperative bleed in Apr 2025 --CT ABD:Large left retroperitoneal hemorrhage with gas within and outside of the hematoma, please correlate with attempted instrumentation or the possibility of superimposed infection. Based on the CT appearance, the hematoma appears subacute with only small amount of higher attenuating material/blood in the center. Healing ventral midline surgical wound with mild regional inflammatory change and subcutaneous gas. Mild to moderate inflammation in the mesentery deep to the surgical wound and within the left upper quadrant. A loop of bowel is present either immediately abutting or within the wound at the level of the umbilicus without dilated loops of bowel. Absent [place] kidneys with left pelvic kidney identified with no hydronephrosis, correlate with clinical history. Innumerable low-attenuation hepatic lesions, possibly cysts may be related to polycystic kidney syndrome which may be why the kidneys are absent. --CT Chest:Changes within the bilateral upper lobes and right middle lobe favor alveolitis and focal bronchitis in the right middle lobe. No lobar pneumonia or adenopathy. Small left pleural effusion. Small pericardial effusion with mild cardiomegaly. -- Blood cultures pending Empirically on IV daptomycin, Zosyn and function IV fluids N.p.o. for now Appreciate surgery input Monitor H&H and transfuse as needed Given complex surgical history at [facility], patient requires IR coiling/embolization intervention for retroperitoneal bleed patient was advised by surgery to be transferred to tertiary care facility for further management Patient was accepted at [facility] by Dr. Maribell Lindsey for further management Postop LLE DVT on Eliquis Eliquis currently on hold due to retroperitoneal hemorrhage May need vascular surgery involvement Mild Pericardial effusion CT as above ECHO pending Monitor Transaminitis In the setting of sepsis, hepatic cysts H/O Polycystic kidney disease Renal transplant patient Monitor LFTs Appreciate nephrology input Continue dialysis as per nephrology Continue to hold mycophenolate due to severe infection Continue tacrolimus, prednisone Avoid nephrotoxic agents as able Chronic hyponatremia Sodium 131 today Monitor Chronic anemia Retroperitoneal bleed contributing as well Monitor CBC Hypertension Blood pressure on lower side Continue midodrine Hyperlipidemia on statin JUAN on CPAP Past tobacco abuse As per record DVT Px: SCDs Re: Retroperitoneal bleed Code Status Full code Admission and Anticipated Discharge Date Admission Date: May 24, 2025 Subjective Patient is seen and examined at bedside Denies any abdominal pain but admits to have nausea Also noted some bleeding at colostomy site Discussed with surgery today Also discussed with patient's at bedside Patient denies any dyspnea, chest pain, dizziness Plan to be transferred to tertiary care facility if accepted Review of Systems Review of Systems: All systems reviewed & are unremarkable except as noted in Subjective Physical Exam Physical Exam: Physical Exam: Vitals signs as noted above General Appearance:Overweight, no apparent distress Head: normocephalic, Atraumatic Eyes: normal inspection, EOMI Neck: supple, Trachea midline Respiratory/Chest: Decreased breath sounds, CTA, No accessory muscle use Cardiovascular: S1, S2, + murmur Abdomen/GI:Soft, Non tender, + Colostomy, abdominal wound, Bowel sounds present Extremities/Musculoskeletal:normal inspection, Trace pedal edema Neurologic/Psych:AAOX3, grossly no focal neurological deficits Skin: normal color, warm Results & Data Results & Data Vital Signs (Past 12 Hours) Vital Signs Temp Pulse Pulse Resp BP Pulse Ox O2 Del Method 05/25/25 11:29 36.9 C 74 18 113/70 97 Room Air 05/25/25 07:58 87 05/25/25 07:58 36.9 C 90 18 130/73 97 Room Air 05/25/25 03:20 36.8 C 86 16 115/73 95 Room Air 05/25/25 00:25 37 C 93 H 16 124/85 97 Room Air Laboratory Results Short CBC 05/24/25 05/24/25 05/25/25 Range/Units 19:45 23:56 06:06 WBC 15.85 H 11.35 H (4.8-10.8) K/ul Hgb 8.6 L 7.7 L 8.0 L (14.0-18.0) g/dL Hct 27.5 L 24.9 L 25.0 L (42.0-52.0) % Plt Count 476 H 366 (130-400) K/uL BMP 05/24/25 05/24/25 05/25/25 19:45 23:56 06:06 Sodium 130 L 130 L 131 L Potassium 4.3 4.3 Chloride 95 L 98 Carbon Dioxide 23 22 BUN 51 H 60 H Creatinine 5.15 H* 5.40 H* Glucose 164 H 107 H Calcium 9.9 9.8 Liver Function 05/24/25 05/25/25 Range/Units 19:45 06:06 Total Bilirubin 1.0 0.9 (0.2-1.0) mg/dl Direct Bilirubin 0.3 H (0-0.2) mg/dl AST 60 H 45 H (13-39) U/L ALT 59 H 47 (7-52) U/L Alkaline Phosphatase 133 H 114 H (34-104) U/L Albumin 3.0 L 3.0 L (3.4-5.0) gm/dl Urine 05/25/25 Range/Units 03:15 Urine Color Dark Yellow Urine Appearance Clear (Clear) Urine pH 5.0 (4.5-7.5) Ur Specific [place] 1.017 (1.000-1.030) Urine Protein 1+ H (Negative) Urine Glucose (UA) Negative (Negative)
--- NOTE | 2025-05-25 12:47 | Discharge Summary ---
Date of Service May 25, 2025 Admission HPI Per Admitting Provider History obtained from patient, family, and records. 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 difficile as per records, chronic hyponatremia, chronic anemia (baseline hemoglobin 7-8), gout, past tobacco abuse. Patient admitted at [facility] from April 13 to 2024 following transfer from [facility] ER for perforated sigmoid diverticulitis/proximal small bowel obstruction. Pneumoperitoneum and small fluid collection left paracolic gutter on initial imaging. Patient underwent left hemicolectomy with transverse and colostomy by Dr. Timmons. Patient noted to have left lower extremity DVT (first clot for patient) following surgery. IV heparin initiated. Significant hemoglobin drop noted after IV heparin initiation with note of superficial postop bleed. Patient had to be transferred to ICU due to hypotension. IR drainage during confinement. Cultures grew Lori as per patient . Patient received micafungin during confinements. Hemodialysis initiated during confinement due to worsening kidney dysfunction. Patient subsequently discharged to [facility] 3 weeks ago. Worsening generalized weakness with poor appetite following confinement as per . Patient noted achy lower abdominal pain today. Patient denies headache, chest pain, SOB, cough symptoms. Patient sent for outpatient CTs at [facility]. CT chest: 1. Changes within the bilateral upper lobes and right middle lobe favor alveolitis and focal bronchitis in the right middle lobe. No lobar pneumonia or adenopathy. 2. Small left pleural effusion. 3. Small pericardial effusion with mild cardiomegaly. CT abdomen pelvis: 1. Large left retroperitoneal hemorrhage with gas within and outside of the hematoma, please correlate with attempted instrumentation or the possibility of superimposed infection. Based on the CT appearance, the hematoma appears subacute with only small amount of higher attenuating material/blood in the center. 2. Healing ventral midline surgical wound with mild regional inflammatory change and subcutaneous gas. Mild to moderate inflammation in the mesentery deep to the surgical wound and within the left upper quadrant. A loop of bowel is present either immediately abutting or within the wound at the level of the umbilicus without dilated loops of bowel. 3. Absent sa[place] kidneys with left pelvic kidney identified with no hydronephrosis, correlate with clinical history. 4. Innumerable low-attenuation hepatic lesions, possibly cysts may be related to polycystic kidney syndrome which may be why the kidneys are absent. Patient sent to ER by rehab provider. Initial SBP at rehab facility 90s as per EMS. IV Zosyn administered at the ER. Medical History as above Surgical History : Bowel surgery, foot surgery, vascular procedures, nephrectomy, kidney transplant Family History : Autoimmune disease, kidney disease Personal/Social history : Past tobacco abuse, occasional EtOH intake, disabled Admission Exam Per Admitting Provider GENERAL: Comfortable, ill-appearing, obese, no respiratory distress SKIN: Pallor, warm HEENT: Pale palpebral conjunctivae, no ptosis, dry buccal mucosa NECK : Supple, no tenderness CHEST : Decreased breath sounds, no tenderness HEART : Tachycardic, systolic murmur ABDOMEN: Dressing over anterior abdomen, some distention, l minimal left-sided abdominal tenderness EXTREMITIES : No LE swelling/tenderness, palpable pulses, no other conspicuous deformities noted NEUROLOGIC : Coherent, no facial asymmetry, no other gross focality Principal Diagnosis Severe sepsis Lactic acidosis Intra-abdominal abscess/postoperative infection Retroperitoneal hemorrhage Mild Pericardial effusion S/P Renal transplant on dialysis Discharge Data Allergies Allergy/AdvReac Type Severity Reaction Status Date / Time No Known Allergies Allergy Verified 05/24/25 20:55 Consultations 05/24/25 22:09 ED Decision to Admit Stat 05/24/25 23:10 Consult General Surgery Routine Consult Nephrology Routine Procedures Performed Laboratory Results WBC 11.35 K/ul (4.8-10.8) H 05/25/25 06:06 RBC 3.00 M/uL (4.70-6.10) L 05/25/25 06:06 Hgb 8.0 g/dL (14.0-18.0) L 05/25/25 06:06 Hct 25.0 % (42.0-52.0) L 05/25/25 06:06 MCV 83.3 fL (80.0-100.0) 05/25/25 06:06 MCH 26.7 pg (25.0-34.0) 05/25/25 06:06 MCHC 32.0 g/dL (32.0-36.0) 05/25/25 06:06 RDW Std Deviation 50.4 fL (36.4-46.3) H 05/25/25 06:06 RDW Coeff of Gokul 16.6 % (11.5-14.5) H 05/25/25 06:06 Plt Count 366 K/uL (130-400) 05/25/25 06:06 MPV 9.1 fL (9.4-12.4) L 05/25/25 06:06 Immature Gran % (Auto) 1.3 % 05/25/25 06:06 Neut % (Auto) 69.1 % 05/25/25 06:06 Lymph % (Auto) 14.9 % 05/25/25 06:06 Vance % (Auto) 13.9 % 05/25/25 06:06 Eos % (Auto) 0.3 % 05/25/25 06:06 Baso % (Auto) 0.5 % 05/25/25 06:06 Neut # (Auto) 7.84 K/uL (1.40-6.50) H 05/25/25 06:06 Lymph # (Auto) 1.69 K/uL (1.20-3.40) 05/25/25 06:06 Vance # (Auto) 1.58 K/uL (0.11-0.59) H 05/25/25 06:06 Eos # (Auto) 0.03 K/uL (0.00-0.50) 05/25/25 06:06 Baso # (Auto) 0.06 K/uL (0.00-0.20) 05/25/25 06:06 Immature Gran # (Auto) 0.15 K/uL (0.01-0.20) 05/25/25 06:06 PT 13.1 Seconds (9.0-12.0) H 05/24/25 19:45 INR 1.3 (0.9-1.1) H 05/24/25 19:45 APTT 29 Seconds (21-31) 05/25/25 06:06 PTT Ratio 1.1 05/25/25 06:06 Sodium 131 mmol/L (136-145) L 05/25/25 06:06 Potassium 4.3 mmol/L (3.5-5.1) 05/25/25 06:06 Chloride 98 mmol/L (98-107) 05/25/25 06:06 Carbon Dioxide 22 mmol/L (21-32) 05/25/25 06:06 Anion Gap 11 (3-11) 05/25/25 06:06 BUN 60 mg/dl (6-23) H 05/25/25 06:06 Creatinine 5.40 mg/dl (0.6-1.4) H* 05/25/25 06:06 Est Cr Clr Drug Dosing 18.8 ml/min 05/25/25 06:06 eGFR .05/25/25 06:06 BUN/Creatinine Ratio 11.1 (10-20) 05/25/25 06:06 Glucose 107 mg/dl (70-99(Fasting)) H 05/25/25 06:06 Estimat Average Glucose 105 mg/dl 05/25/25 06:06 Hemoglobin A1c 5.3 % (4.5-5.6) 05/25/25 06:06 Osmolality 294 mOsm/kg (280-300) 05/24/25 23:56 Lactate 2.0 mmol/L (0.4-2.0) 05/24/25 21:38 Calcium 9.8 mg/dl (8.6-10.3) 05/25/25 06:06 Magnesium 1.9 mg/dl (1.7-2.4) 05/25/25 06:06 Total Bilirubin 0.9 mg/dl (0.2-1.0) 05/25/25 06:06 Direct Bilirubin 0.3 mg/dl (0-0.2) H 05/24/25 19:45 AST 45 U/L (13-39) H 05/25/25 06:06 ALT 47 U/L (7-52) 05/25/25 06:06 Alkaline Phosphatase 114 U/L (34-104) H 05/25/25 06:06 Troponin I High Sens 13.7 pg/ml (0-20) 05/24/25 19:45 Total Protein 6.8 gm/dl (6.0-8.3) 05/25/25 06:06 Albumin 3.0 gm/dl (3.4-5.0) L 05/25/25 06:06 Globulin 3.8 gm/dl (2.5-4.0) 05/25/25 06:06 Albumin/Globulin Ratio 0.8 (0.9-2) L 05/25/25 06:06 Procalcitonin 1.23 ng/ml (0-0.5) H 05/24/25 19:45 TSH 0.759 uIu/ml (0.300-4.500) 05/25/25 06:06 Urine Color Dark Yellow 05/25/25 03:15 Urine Appearance Clear (Clear) 05/25/25 03:15 Urine pH 5.0 (4.5-7.5) 05/25/25 03:15 Ur Specific [place] 1.017 (1.000-1.030) 05/25/25 03:15 Urine Protein 1+ (Negative) H 05/25/25 03:15 Urine Glucose (UA) Negative (Negative) 05/25/25 03:15 Urine Ketones Trace (Negative) H 05/25/25 03:15 Urine Blood Negative (Negative) 05/25/25 03:15 Urine Nitrite Negative (Negative) 05/25/25 03:15 Urine Bilirubin Negative (Negative) 05/25/25 03:15 Urine Urobilinogen Negative (Negative) 05/25/25 03:15 Ur Leukocyte Esterase Trace (Negative) H 05/25/25 03:15 Urine WBC (Auto) 0-5 /hpf (0-5) 05/25/25 03:15 Urine RBC (Auto) 6-10 /hpf (0-2) H 05/25/25 03:15 U Hyaline Cast (Auto) 11-20 /lpf (0-2) H 05/25/25 03:15 U Epithel Cells (Auto) 0-2 /hpf (0-2) 05/25/25 03:15 Urine Bacteria (Auto) None Seen (None Seen) 05/25/25 03:15 Urine Mucus Present (None Prsent) A 05/25/25 03:15 Urine Comment 05/25/25 03:15 Nasal Screen MRSA (PCR) Negative (Negative) 05/24/25 22:42 Blood Type O Positive 05/24/25 19:45 Antibody Screen NEGATIVE 05/24/25 19:45 Hospital Course (1) Severe sepsis: Severe sepsis Lactic acidosis Intra-abdominal abscess/postoperative infection Retroperitoneal hemorrhage Immunocompromised patient (ESRD secondary to PCKD status post nephrectomy/kidney transplantation on immunosuppressive/anti-infective regimen (Bactrim for PJP prophylaxis) currently requiring HD) --H/O recent exploratory laparotomy, sigmoid resection and colostomy formation for perforated diverticulitis at [facility]. Patient required IR intervention/coiling for postoperative bleed in Apr 2025 --CT ABD:Large left retroperitoneal hemorrhage with gas within and outside of the hematoma, please correlate with attempted instrumentation or the possibility of superimposed infection. Based on the CT appearance, the hematoma appears subacute with only small amount of higher attenuating material/blood in the center. Healing ventral midline surgical wound with mild regional inflammatory change and subcutaneous gas. Mild to moderate inflammation in the mesentery deep to the surgical wound and within the left upper quadrant. A loop of bowel is present either immediately abutting or within the wound at the level of the umbilicus without dilated loops of bowel. Absent sa[place] kidneys with left pelvic kidney identified with no hydronephrosis, correlate with clinical history. Innumerable low-attenuation hepatic lesions, possibly cysts may be related to polycystic kidney syndrome which may be why the kidneys are absent. --CT Chest:Changes within the bilateral upper lobes and right middle lobe favor alveolitis and focal bronchitis in the right middle lobe. No lobar pneumonia or adenopathy. Small left pleural effusion. Small pericardial effusion with mild cardiomegaly. -- Blood cultures pending Empirically on IV daptomycin, Zosyn and function IV fluids N.p.o. for now Appreciate surgery input Monitor H&H and transfuse as needed Given complex surgical history at [facility], patient requires IR coiling/embolization intervention for retroperitoneal bleed patient was advised by surgery to be transferred to tertiary care facility for further management Patient was accepted at [facility] presby by Dr. Maribell Lindsey for further managem ent Postop LLE DVT on Eliquis Eliquis currently on hold due to retroperitoneal hemorrhage May need vascular surgery involvement Mild Pericardial effusion CT as above ECHO pending Monitor Transaminitis In the setting of sepsis, hepatic cysts H/O Polycystic kidney disease Renal transplant patient Monitor LFTs Appreciate nephrology input Continue dialysis as per nephrology Continue to hold mycophenolate due to severe infection Continue tacrolimus, prednisone Avoid nephrotoxic agents as able Chronic hyponatremia Sodium 131 today Monitor Chronic anemia Retroperitoneal bleed contributing as well Monitor CBC Hypertension Blood pressure on lower side Continue midodrine Hyperlipidemia on statin JUAN on CPAP Past tobacco abuse As per record DVT Px: SCDs Re: Retroperitoneal bleed Code Status Full code Total Time Total Time Spent Total Time Spent (In Minutes): 53 minutes Discharge Plan Discharge Items Patient Disposition: Transfer Acute Care Hospital Reason For Visit: SEPSIS Discharge Diagnosis: Severe sepsis Lactic acidosis Intra-abdominal abscess/postoperative infection Retroperitoneal hemorrhage Mild Pericardial effusion S/P Renal transplant on dialysis Condition on Discharge: Fair Activity: Per Instructions section Exercise/Sports: Wait until after follow-up appointment Non-emergency contact: Primary Care Provider, Surgeon and Floor Attendant Call non-emergency contact if: you have any medication questions, your symptoms worsen, your pain is concerning for you and you have a fever Follow-up/Referrals: Joshua Medina MD [Primary Care Provider] - Diet: Nothing by Mouth Addmyles Attending Provider Instructions: -- Follow-up with your Physician Dr.Christine Lindsey at [facility] for further management Seek immediate medical attention if your symptoms reoccur or worsen Please review medication list provided on discharge for any medication changes as instructed. Please call if you have any questions or problems. You can reach a [facility] hospitalist on duty at [facility] 24 hours a day by calling [phone] [employer] Provider Instructions: Date of Service: May 25, 2025 Current Inpatient Medications Acetaminophen (Acetaminophen 500 Mg Tab) 500 mg PO Q6H PRN PRN Reason: fever/pain Stop: 06/23/25 23:09 Docusate Sodium (Docusate Sodium 100 Mg Cap) 100 mg PO BID PRN PRN Reason: Constipation Stop: 06/23/25 23:11 Daptomycin 600 mg/ Syringe 12 mls @ 6 mls/min IV Q2D JACKIE; Protocol Stop: 06/05/25 22:59 Caspofungin 50 mg/ Sodium (Chloride) 260 mls @ 250 mls/hr IV Q24H JACKIE; Protocol Stop: 06/04/25 22:59 Promethazine HCl (Phenergan) 6.25 mg in 50.25 mls @ 201 mls/hr IV Q6H PRN PRN Reason: Nausea And Vomiting Stop: 06/23/25 23:09 Piperacillin Sod/Tazobactam Sod (Zosyn) 4.5 gm in 100 mls @ 25 mls/hr IV Q12H JACKIE; Protocol Stop: 06/04/25 05:59 Last Infusion: 05/25/25 10:46 Dose: Infused Sodium Chloride (Nss) 1,000 mls @ 0 mls/hr IV .Q0M PRN PRN Reason: For Hemodialysis Use ONLY Stop: 05/25/25 18:01 Melatonin (Melatonin 3 Mg Tab) 6 mg PO HS PRN PRN Reason: Insomnia Stop: 06/23/25 23:11 Midodrine (Midodrine Hcl 2.5 Mg Tab) 5 mg PO UD PRN PRN Reason: PRIOR TO DIALYSIS Stop: 06/23/25 23:11 Last Admin: 05/25/25 09:39 Dose: 5 mg Midodrine (Midodrine Hcl 10 Mg Tab) 10 mg PO TIDM JACKIE Stop: 06/24/25 07:59 Last Admin: 05/25/25 12:15 Dose: 10 mg Mycophenolate Sodium (Mycophenolate Sodium 180 Mg Tab) 180 mg PO BID JACKIE Stop: 06/24/25 08:59 Last Admin: 05/25/25 09:39 Dose: 180 mg Oxycodone HCl (Oxycodone Hcl Ir 5 Mg Tab (Immediate Release)) 5 mg PO Q4H PRN PRN Reason: Pain Stop: 06/07/25 23:09 Pantoprazole Sodium (Pantoprazole 40 Mg Tab) 40 mg PO DAILYBB JACKIE Stop: 06/24/25 06:29 Last Admin: 05/25/25 06:24 Dose: 40 mg Polyethylene Glycol (Polyethylene (Miralax) 17 Gm Pack) 17 gm PO QDL PRN PRN Reason: Constipation Stop: 06/23/25 23:11 Prednisone (Prednisone 5 Mg Tab) 5 mg PO DAILY JACKIE Stop: 06/24/25 08:59 Last Admin: 05/25/25 09:39 Dose: 5 mg Tacrolimus (Tacrolimus 1 Mg Cap) 1 mg PO QAM JACKIE Stop: 06/24/25 08:59 Last Admin: 05/25/25 09:39 Dose: 1 mg Tacrolimus (Tacrolimus 0.5 Mg Cap) 0.5 mg PO HS JACKIE Stop: 06/24/25 20:59 Pending Studies at Discharge: Yes Studies:: Blood culture Stand-Alone Forms: [facility] Skilled Items Patient informed of condition?: Yes DNR: No Discharge Level of Care: Other Communicable Disease: No Discharge Prognosis: Other Lines: Peripheral IV Urinary Catheter: Yes Medications and DC Order Prescriptions: Continued metolazone 2.5 mg Tablet 5 mg PO 4XWK Rx Instructions: MARCELLA NUNEZ, MARTIN & SAT. atorvastatin 40 mg Tablet 80 mg PO HS methocarbamol 500 mg Tablet 1,000 mg PO Q8H PRN (Reason: MUSCLE SPASMS) bumetanide 2 mg Tablet 2 mg PO 4XWK Rx Instructions: MAYRA, MARCELLA, MARTIN, & SAT. sennosides-docusate sodium [Senokot-S] 8.6-50 mg Tablet 1 tab-cap PO QDL PRN (Reason: Constipation) prednisone 5 mg Tablet 5 mg PO DAILY midodrine 5 mg tablet 10 mg PO TIDM midodrine 5 mg Tablet 5 mg PO 3XWK PRN (Reason: PRIOR TO DIALYSIS ) Rx Instructions: MON, WED, & FRI melatonin 3 mg Tablet 6 mg PO HS PRN (Reason: Insomnia) sulfamethoxazole-trimethoprim [Bactrim DS] 800-160 mg Tablet 0.5 tab PO 3XWK Rx Instructions: MON, WED & FRI aspirin 81 mg Tablet,Delayed Release (Dr/Ec) 81 mg PO HS acetaminophen [Tylenol Extra Strength] 500 mg Tablet 500 mg PO Q4H PRN (Reason: PAIN/TEMP=>100F) sodium chloride 0.9 % [Normal Saline] Solution 1,000 ml IV DIRECTED PRN (Reason: DIALYSIS NEEDED) bisacodyl 10 mg Suppository 10 mg ND DAILY PRN (Reason: Constipation) pantoprazole 40 mg Tablet,Delayed Release (Dr/Ec) 40 mg PO DAILYBB Fleet Enema 19-7 gram/118 mL Enema 118 ml ND DAILY PRN (Reason: Constipation) docusate sodium 100 mg Capsule 100 mg PO BID PRN (Reason: Constipation) polyethylene glycol 3350 [Miralax] 17 gram/dose Powder 17 g PO BID polyethylene glycol 3350 [Miralax] 17 gram/dose Powder 17 g PO QDL PRN (Reason: Constipation) ondansetron [Zofran ODT] 4 mg Tablet,Disintegrating 4 mg PO Q6H PRN (Reason: NAUSEA/VOMITING) tacrolimus 1 mg Capsule 1 mg PO QAM tacrolimus 0.5 mg Capsule 0.5 mg PO HS mycophenolate sodium 180 mg tablet,delayed release (DR/EC) 180 mg PO Q12H darbepoetin jessi in polysorbat 100 mcg/0.5 mL Syringe 200 mcg subcut WK febuxostat 40 mg Tablet 80 mg PO DAILY calcium carbonate-mag oxide 333-167 mg Tablet 3 tab PO BID Eliquis 5 mg tablet 5 mg PO BID Discharge Orders: Discharge Order (Routine); Ordered 05/25/25 Ordered By: Misha Rangel Admission Data Admit Date/Time: 05/24/25 22:26 Attending Provider: Misha Rangel Admit Provider: Otis Ceron Primary Care Provider: Joshua Medina Other Providers: Dima Talbert; Watson Song; Kate Louis; Ryley Kline; Eric Edmond; Lenny Arriola; Gerri Johnson
[2025-05-25 13:08] LABS: Hep B Surface Ag with confirm Negative (Negative)
--- NOTE | 2025-05-25 13:40 | XCELERA ---
[id number] [id number]
[2025-05-25] MEDS: EPOETIN ALFA 20,000 UNITS/ML VIAL IV ONE (13:43)
[2025-05-25] MEDS ORDERED: TACROLIMUS 0.5 MG CAP PO SCH (21:00)
[2025-05-25] MEDS ORDERED: CASPOFUNGIN 50 MG in SODIUM CHLORIDE 0.9% 250 ML IV SCH (23:00)
[2025-05-26] MEDS ORDERED: DAPTOmycin 600 MG in SYRINGE 0 ML IV SCH (23:00)
--- NOTE | 2025-05-27 08:32 | Electrocardiogram Report ---
Test Reason : Blood Pressure : */* mmHG Vent. Rate : 109 BPM Atrial Rate : 109 BPM P-R Int : 150 ms QRS Dur : 94 ms QT Int : 330 ms P-R-T Axes : 29 -17 20 degrees QTcB Int : 444 ms Sinus tachycardia with Premature atrial complexes with Aberrant conduction Minimal voltage criteria for LVH, may be normal variant ( R in aVL ) Borderline ECG No previous ECGs available Confirmed by Bill Godfrey ([id number]) on 05/27/2025 8:31:59 AM Referred By: [facility] Confirmed By: Bill Godfrey
== END 2025-05-25 15:26 | disposition short-term general hospital (02) | DRG 862 ==
LOC: ED 19:30 → EDINP 22:26 → 2E 23:18